=== PATIENT | female | born 1985 | race African-American/Black ===

== ENCOUNTER 2019-08-14 11:37 | Observation (INO) ==
[2019-08-14 11:34] LABS: Total Volume 24 Hour,Urine 0.92 Liters (0.60-1.60)
[2019-08-14 11:36] LABS: Basophils % 0.2 %; Eosinophils % 0.4 %; Hematocrit 32.5 % (35.3-44.9); Hemoglobin 10.8 g/dL (11.5-15.4); Immature Granulocytes % 0.6 % (0-4); Lymphocytes # 1.3 K/mcL (0.6-4.6); Lymphocytes % 15.2 %; Mean Corpuscular HGB Conc 33.2 g/dL (31.6-35.5); Mean Corpuscular Hemoglobin 27.7 pg (28.0-33.3); Mean Corpuscular Volume 83.3 fL (83.0-100.0); Mean Platelet Volume 8.7 fL (9.4-12.4); Monocytes # 0.5 K/mcL (0.0-1.3); Monocytes % 6.3 %; Neutrophils # 6.4 K/mcL (1.6-8.9); Platelet Count 358 K/mcL (140-400); Red Cell Distribution Width 18.4 % (11.5-14.5); Segmented Neutrophils % 77.3 %; White Blood Count 8.3 K/mcL (4.3-11.1)
[2019-08-14 11:43] LABS: Protein/Creatinine Ratio,Urine 0.25 mg/mg (0.00-0.20)
[2019-08-14 11:53] LABS: Alanine Aminotransferase 10 Units/L (7-52); Aspartate Amino Transferase 12 Units/L (13-39); BUN/Creatinine Ratio 13 (6-26); Blood Urea Nitrogen 6 mg/dL (6-20); Lactate Dehydrogenase 191 Units/L (140-271); Uric Acid 3.9 mg/dL (2.3-7.6); eGFR For African Americans > 60 (> 60); eGFR For Non-African Americans > 60 (> 60)
== END 2019-08-14 12:30 | disposition home or self-care (01) ==
LOC: 1NENULAB
PROVIDERS: ADMIT Obstetrics & Gynecology; ATTEND Obstetrics & Gynecology

== ENCOUNTER 2019-08-21 18:47 | Inpatient (IN) ==
[2019-08-21] MEDS ORDERED: Famotidine 20 MG/2 ML VIAL IVP PRN (19:20)
[2019-08-21] MEDS ORDERED: Metoclopramide 10 MG/2 ML VIAL IVP PRN (19:20)
[2019-08-21] MEDS ORDERED: Ondansetron 4 MG/2 ML VIAL IVP PRN ×2 (19:20→22:05)
[2019-08-21] MEDS ORDERED: Naloxone 0.4 MG/ML INJ IVP PRN ×2 (19:20→22:05)
[2019-08-21] MEDS: miSOPROStoL 25 MCG TABLET PO SCH (20:55)
[2019-08-21 21:14] LABS: Amphetamine Screen,Urine Negative ng/mL (Cutoff=1000); Barbiturate Screen,Urine Negative ng/mL (Cutoff=200); Benzodiazepines Screen,Urine Negative ng/mL (Cutoff=200); Cannabinoid Screen,Urine Negative ng/mL (Cutoff = 50); Cocaine Screen,Urine Negative ng/mL (Cutoff= 300); Opiate Screen,Urine Negative ng/mL (Cutoff=300); Phencyclidine Screen,Urine Negative ng/mL (Cutoff=25)
[2019-08-21] MEDS ORDERED: *HR* Labetalol 20 MG/4 ML SYRINGE IVP ONE (21:23)
[2019-08-21 21:33] LABS: Basophils % 0.2 %; Eosinophils % 0.2 %; Hematocrit 30.8 % (35.3-44.9); Hemoglobin 10.3 g/dL (11.5-15.4); Immature Granulocytes % 0.8 % (0-4); Lymphocytes # 1.5 K/mcL (0.6-4.6); Lymphocytes % 15.5 %; Mean Corpuscular HGB Conc 33.4 g/dL (31.6-35.5); Mean Corpuscular Hemoglobin 28.3 pg (28.0-33.3); Mean Corpuscular Volume 84.6 fL (83.0-100.0); Mean Platelet Volume 8.7 fL (9.4-12.4); Monocytes # 0.6 K/mcL (0.0-1.3); Monocytes % 6.4 %; Neutrophils # 7.3 K/mcL (1.6-8.9); Nucleated Red Blood Cells 0.2 /100 WBC (0); Platelet Count 380 K/mcL (140-400); Red Blood Count 3.64 M/mcL (3.82-4.97); Red Cell Distribution Width 18.7 % (11.5-14.5); Segmented Neutrophils % 76.9 %; White Blood Count 9.5 K/mcL (4.3-11.1)
[2019-08-21] MEDS: Ringers Solution, Lactated 1,000 ML IVC SCH (21:51)
[2019-08-21 21:53] LABS: Alanine Aminotransferase 10 Units/L (7-52); Aspartate Amino Transferase 12 Units/L (13-39); BUN/Creatinine Ratio 15 (6-26); Blood Urea Nitrogen 10 mg/dL (6-20); Lactate Dehydrogenase 207 Units/L (140-271); Uric Acid 4.4 mg/dL (2.3-7.6); eGFR For African Americans > 60 (> 60); eGFR For Non-African Americans > 60 (> 60)
[2019-08-21] MEDS ORDERED: *HR* FentaNYL (PF) 100 MCG/2 ML VIAL EP ONE (22:05)
[2019-08-21] MEDS ORDERED: EPHEDrine 50 MG/ML VIAL IVP PRN (22:05)
[2019-08-21] MEDS ORDERED: Ropivacaine/PF 0.2% 20 ML VIAL EP ONE (22:05)
[2019-08-21 22:50] LABS: Protein/Creatinine Ratio,Urine 0.16 mg/mg (0.00-0.20)
[2019-08-22] MEDS: miSOPROStoL 25 MCG TABLET PO SCH (01:14)
[2019-08-22] MEDS ORDERED: *HR* FentaNYL (PF) 100 MCG/2 ML VIAL ONE ×2 (03:19→17:08)
[2019-08-22] MEDS: Epidural Premix (fent/bupiv) 110 ML EP SCH ×2 (03:43→10:26)
[2019-08-22] MEDS: Oxytocin 20 units/ LR 1000 mL 20 UNIT/1,000 ML BAG IVC SCH ×3 (05:51→22:33)
[2019-08-22] MEDS: Ringers Solution, Lactated 1,000 ML IVC SCH ×2 (06:50→14:31)
[2019-08-22] MEDS ORDERED: Azithromycin 500 MG in 0.9 % Sodium Chloride 250 ML IVPB ONE (16:37)
[2019-08-22] MEDS ORDERED: ceFAZolin 3,000 MG in Water for inj. (sterile) 30 ML IVP ONE (16:38)
[2019-08-22] MEDS ORDERED: CeFAZolin Syr 3,000MG/30 ML 3,000 MG/30 ML SYRINGE IVPB ONE (17:00)
[2019-08-22] MEDS ORDERED: Ringers Solution, Lactated 1,000 ML ONE (17:08)
[2019-08-22] MEDS ORDERED: Lidocaine/EPI 1:200k 2% PF 20 ML VIAL ONE (17:08)
[2019-08-22] MEDS ORDERED: Sodium Bicarbonate 50 MEQ/50 ML VIAL ONE (17:08)
[2019-08-22] MEDS ORDERED: Ondansetron 4 MG/2 ML VIAL ONE (17:28)
[2019-08-22] MEDS ORDERED: Dexamethasone 4 MG/ML VIAL ONE (17:28)
[2019-08-22] MEDS ORDERED: *HR* Oxytocin 10 UNIT/ML VIAL IM ONE (18:03)
[2019-08-22] MEDS ORDERED: Ketorolac 30 MG/ML VIAL ONE (18:10)
[2019-08-22] MEDS ORDERED: Acetaminophen IV 1,000 MG/100 ML INFUS..BTL ONE (18:10)
[2019-08-22] MEDS ORDERED: *HR* Morphine Sulfate/PF 10 MG/10 ML AMPUL ONE (18:18)
[2019-08-22] MEDS ORDERED: Sennosides 8.6 MG TABLET PO PRN (22:12)
[2019-08-22] MEDS ORDERED: Ondansetron 4 MG/2 ML VIAL IVP PRN (22:12)
[2019-08-22] MEDS ORDERED: Simethicone 80 MG TAB.CHEW PO PRN (22:12)
[2019-08-22] MEDS ORDERED: Metoclopramide 10 MG/2 ML VIAL IVP PRN (22:12)
[2019-08-22] MEDS: metroNIDAZOLE 500 MG TABLET PO SCH (22:33)
[2019-08-23] MEDS: ceFAZolin 3,000 MG in 0.9 % Sodium Chloride 100 ML IVPB SCH ×3 (02:35→15:35)
[2019-08-23] MEDS: *HR* Enoxaparin 100 MG/ML SYRINGE SQ SCH (06:21)
[2019-08-23] MEDS: Ibuprofen 600 MG TABLET PO PRN ×2 (06:53→15:34)
[2019-08-23] MEDS: Oxytocin 20 units/ LR 1000 mL 20 UNIT/1,000 ML BAG IVC SCH (07:00)
[2019-08-23 09:05] LABS: Basophils % 0.1 %; Hematocrit 28.5 % (35.3-44.9); Hemoglobin 9.1 g/dL (11.5-15.4); Immature Granulocytes % 0.6 % (0-4); Lymphocytes # 1.3 K/mcL (0.6-4.6); Lymphocytes % 7.8 %; Mean Corpuscular HGB Conc 31.9 g/dL (31.6-35.5); Mean Corpuscular Hemoglobin 27.7 pg (28.0-33.3); Mean Corpuscular Volume 86.9 fL (83.0-100.0); Mean Platelet Volume 8.7 fL (9.4-12.4); Monocytes # 0.9 K/mcL (0.0-1.3); Monocytes % 5.1 %; Neutrophils # 14.7 K/mcL (1.6-8.9); Nucleated Red Blood Cells 0.1 /100 WBC (0); Platelet Count 333 K/mcL (140-400); Red Blood Count 3.28 M/mcL (3.82-4.97); Red Cell Distribution Width 18.8 % (11.5-14.5); Segmented Neutrophils % 86.4 %
[2019-08-23] MEDS: Prenatal Vit/FA 1 EACH TABLET PO SCH (10:13)
[2019-08-23] MEDS: metroNIDAZOLE 500 MG TABLET PO SCH ×3 (10:13→19:36)
[2019-08-23] MEDS: *HR* OxyCODONE/APAP 5/325 TABLET PO PRN ×2 (12:01→19:40)
[2019-08-24] MEDS: *HR* OxyCODONE/APAP 5/325 TABLET PO PRN ×2 (02:38→22:54)
[2019-08-24] MEDS: *HR* Enoxaparin 100 MG/ML SYRINGE SQ SCH ×2 (05:55→18:31)
[2019-08-24] MEDS: Ibuprofen 600 MG TABLET PO PRN ×3 (06:05→22:54)
[2019-08-24] MEDS: metroNIDAZOLE 500 MG TABLET PO SCH ×2 (08:11→16:15)
[2019-08-24] MEDS: Prenatal Vit/FA 1 EACH TABLET PO SCH (08:11)
[2019-08-25] MEDS: *HR* OxyCODONE/APAP 5/325 TABLET PO PRN (06:45)
[2019-08-25] MEDS: *HR* Enoxaparin 100 MG/ML SYRINGE SQ SCH (06:58)
[2019-08-25 08:12] VITALS: BP 136/69
[2019-08-25] MEDS: Prenatal Vit/FA 1 EACH TABLET PO SCH (09:40)
== END 2019-08-25 13:30 | disposition home or self-care (01) | DRG 540 ==
LOC: 1NENULAB 18:47 → 1NENUOBS 08-22 21:35
PROVIDERS: ADMIT Student in an Organized Health Care Education/Training Program; ATTEND Student in an Organized Health Care Education/Training Program

== ENCOUNTER 2022-01-13 10:00 | Inpatient (IN) ==
[2022-01-13] MEDS ORDERED: Ringers Solution, Lactated 1,000 ML ONE ×2 (11:04→13:35)
[2022-01-13] MEDS ORDERED: Ringers Solution, Lactated 1,000 ML IVC ONE (11:04)
[2022-01-13] MEDS ORDERED: Famotidine 20 MG/2 ML VIAL IVP ONE (11:05)
[2022-01-13] MEDS ORDERED: Metoclopramide 10 MG/2 ML VIAL IVP ONE (11:05)
[2022-01-13 11:25] LABS: Basophils % 0.1 %; Eosinophils % 0.3 %; Hematocrit 33.5 % (35.3-44.9); Immature Granulocytes % 0.3 % (0-4); Lymphocytes # 1.4 K/mcL (0.6-4.6); Lymphocytes % 15.8 %; Mean Corpuscular HGB Conc 32.8 g/dL (31.6-35.5); Mean Corpuscular Hemoglobin 27.4 pg (28.0-33.3); Mean Corpuscular Volume 83.5 fL (83.0-100.0); Mean Platelet Volume 8.7 fL (9.4-12.4); Monocytes # 0.6 K/mcL (0.0-1.3); Monocytes % 6.4 %; Neutrophils # 6.8 K/mcL (1.6-8.9); Platelet Count 344 K/mcL (140-400); Red Blood Count 4.01 M/mcL (3.82-4.97); Red Cell Distribution Width 17.2 % (11.5-14.5); Segmented Neutrophils % 77.1 %; White Blood Count 8.8 K/mcL (4.3-11.1)
[2022-01-13] MEDS ORDERED: *HR* Morphine Sulfate/PF 10 MG/10 ML AMPUL ONE (11:50)
[2022-01-13] MEDS ORDERED: *HR* FentaNYL (PF) 100 MCG/2 ML VIAL ONE (11:51)
[2022-01-13] MEDS ORDERED: Ondansetron 4 MG/2 ML VIAL ONE (11:51)
[2022-01-13 11:54] LABS: Amphetamine Screen,Urine Negative ng/mL (Cutoff=1000); Barbiturate Screen,Urine Negative ng/mL (Cutoff=200); Benzodiazepines Screen,Urine Negative ng/mL (Cutoff=200); Cannabinoid Screen,Urine Negative ng/mL (Cutoff = 50); Cocaine Screen,Urine Negative ng/mL (Cutoff= 300); Creatinine,Urine 241 mg/dL; Opiate Screen,Urine Negative ng/mL (Cutoff=300); Phencyclidine Screen,Urine Negative ng/mL (Cutoff=25)
[2022-01-13] MEDS ORDERED: CeFAZolin Syr 3,000MG/30 ML 3,000 MG/30 ML SYRINGE IVPB ONE (12:00)
[2022-01-13 12:02] LABS: Alanine Aminotransferase 10 Units/L (7-52); Aspartate Amino Transferase 11 Units/L (13-39); BUN/Creatinine Ratio 18 (6-26); Blood Urea Nitrogen 9 mg/dL (6-20); Glucose 76 mg/dL (70-105); Lactate Dehydrogenase 181 Units/L (140-271); Uric Acid 3.8 mg/dL (2.3-7.6)
[2022-01-13] MEDS ORDERED: Ondansetron 4 MG/2 ML VIAL IVP PRN ×2 (12:55→16:26)
[2022-01-13] MEDS ORDERED: *HR* FentaNYL (PF) 100 MCG/2 ML VIAL IVP PRN (12:55)
[2022-01-13] MEDS ORDERED: *HR* OxyCODONE Immed Rel 5 MG TABLET PO PRN (12:55)
[2022-01-13] MEDS ORDERED: *HR* Nalbuphine 10 MG/ML AMPUL IV PRN (13:00)
[2022-01-13] MEDS ORDERED: Acetaminophen IV 1,000 MG/100 ML BAG IVPB ONE (13:35)
[2022-01-13] MEDS ORDERED: Ketorolac 30 MG/ML VIAL ONE (13:42)
[2022-01-13] MEDS ORDERED: Oxytocin 30 UNIT/503 ML BAG IVC SCH (16:26)
[2022-01-13] MEDS ORDERED: Simethicone 80 MG TAB.CHEW PO PRN (16:26)
[2022-01-13] MEDS ORDERED: Metoclopramide 10 MG/2 ML VIAL IVP PRN (16:26)
[2022-01-13] MEDS: metroNIDAZOLE 500 MG TABLET PO SCH ×2 (17:28→22:51)
[2022-01-13] MEDS: Acetaminophen 325 MG TABLET PO SCH (19:58)
[2022-01-13] MEDS: Ibuprofen 600 MG TABLET PO SCH (19:58)
[2022-01-13] MEDS: ceFAZolin 3,000 MG in 0.9 % Sodium Chloride 100 ML IVPB SCH (20:42)
[2022-01-13] MEDS: *HR* OxyCODONE Immed Rel 5 MG TABLET PO PRN (20:59)
[2022-01-13] MEDS: *HR* Enoxaparin 100 MG/ML SYRINGE SQ SCH (22:51)
[2022-01-14] MEDS: Acetaminophen 325 MG TABLET PO SCH ×4 (01:51→21:16)
[2022-01-14] MEDS: Ibuprofen 600 MG TABLET PO SCH ×3 (01:51→21:16)
[2022-01-14] MEDS: *HR* OxyCODONE Immed Rel 5 MG TABLET PO PRN ×2 (04:03→19:46)
[2022-01-14] MEDS: ceFAZolin 3,000 MG in 0.9 % Sodium Chloride 100 ML IVPB SCH (04:04)
[2022-01-14] MEDS ORDERED: Aspirin Enteric Coated 81 MG Tablet PO SCH (09:00)
[2022-01-14] MEDS: metroNIDAZOLE 500 MG TABLET PO SCH ×3 (09:32→19:45)
[2022-01-14] MEDS: Prenatal Vit/FA 1 EACH TABLET PO SCH (09:32)
[2022-01-14] MEDS: *HR* Enoxaparin 100 MG/ML SYRINGE SQ SCH ×2 (09:32→19:46)
[2022-01-14 10:58] LABS: Basophils % 0.2 %; Eosinophils # 0.1 K/mcL (0.0-0.6); Eosinophils % 1.1 %; Hematocrit 31.4 % (35.3-44.9); Hemoglobin 10.2 g/dL (11.5-15.4); Immature Granulocytes % 0.4 % (0-4); Lymphocytes # 0.8 K/mcL (0.6-4.6); Lymphocytes % 7.7 %; Mean Corpuscular HGB Conc 32.5 g/dL (31.6-35.5); Mean Corpuscular Hemoglobin 27.1 pg (28.0-33.3); Mean Corpuscular Volume 83.5 fL (83.0-100.0); Mean Platelet Volume 8.5 fL (9.4-12.4); Monocytes # 0.5 K/mcL (0.0-1.3); Neutrophils # 8.6 K/mcL (1.6-8.9); Platelet Count 306 K/mcL (140-400); Red Blood Count 3.76 M/mcL (3.82-4.97); Red Cell Distribution Width 17.3 % (11.5-14.5); Segmented Neutrophils % 85.6 %
[2022-01-14 20:10] VITALS: O2SAT 98
[2022-01-15] MEDS: Acetaminophen 325 MG TABLET PO SCH ×2 (03:22→09:22)
[2022-01-15] MEDS: Ibuprofen 600 MG TABLET PO SCH ×2 (03:22→09:21)
[2022-01-15 03:29] VITALS: TEMP 98.4
[2022-01-15 06:44] VITALS: BP 140/80; PULSE 83
[2022-01-15] MEDS: *HR* Enoxaparin 100 MG/ML SYRINGE SQ SCH (09:20)
[2022-01-15] MEDS: metroNIDAZOLE 500 MG TABLET PO SCH (09:21)
[2022-01-15] MEDS: Prenatal Vit/FA 1 EACH TABLET PO SCH (09:21)
== END 2022-01-15 11:24 | disposition home or self-care (01) | DRG 785 ==
LOC: 1NENULAB 10:09 → 1NENUOBS 16:16
PROVIDERS: ADMIT Obstetrics & Gynecology; ATTEND Obstetrics & Gynecology